=== PATIENT | male | born 1985 ===

== ENCOUNTER 2017-08-26 19:48 | Emergency (ER) | payer SELFPAY ==
[~2017-08-26] VITALS: Ht 182.9 cm; Wt 106.6 kg
== END 2017-08-26 20:50 | disposition home or self-care (01) ==
LOC: ER 19:48 → EDSEX 19:48 → ER 20:50
DX: F41.0 Panic disorder [episodic paroxysmal anxiety] (principal); I10 Essential (primary) hypertension
CPT/HCPCS: 99283